=== PATIENT | male | born 1970 | race Caucasian/White ===

== ENCOUNTER → 2016-10-16 | Outpatient (CLI) | payer BC ==
[~2016-10-16] MED LIST: CETI10TA17 PO; FLUT16SP22 NS; MNTL10T PO; MULT-608 PO; PIRB14AE4 IH
--- NOTE | 2016-10-17 19:33 | Diagnostic Imaging Report ---
Right diagnostic mammogram. INDICATION: Right breast lump. There are no prior exams available for comparison. The current study was also evaluated with a Computer Aided Detection (CAD) system. FINDINGS: By history, the patient has palpable abnormality in the lateral aspect of the right breast. A marker was placed over the area of concern. There is no primary or secondary sign of malignancy in this region. I would recommend that ultrasound be performed for further study, however. There is some fibroglandular tissue in both retroareolar regions. The fibroglandular tissue appears symmetrical. Consequently, I am not convinced that this is related to gynecomastia. The MLO view of the left breast is otherwise unremarkable as well. IMPRESSION: There is no evidence of malignancy. Ultrasound of the right breast would be recommended for further study. ACR BI-RADS Category 0: Incomplete. (Needs additional imaging evaluation). Result letter will be mailed to the patient. Note: At least 10% of breast cancer is not imaged by mammography. Dictated by: Dictated on workstation # [id number]
--- NOTE | 2016-10-17 20:19 | Diagnostic Imaging Report ---
EXAM: Ultrasound of the right breast. INDICATION: Right breast lump. By history, the patient has a palpable abnormality along the lateral aspect of the right breast. The diagnostic mammogram performed earlier today failed to show any sign of malignancy in this area. On this study, there is no discrete solid or cystic mass in the lateral aspect of the right breast. The patient also noted some pain in the lateral aspect of the left retroareolar region. There is no ultrasound abnormality identified in this area either. IMPRESSION: 1. There is no evidence for malignancy or for an acute abnormality of either breast. 2. If clinical concern regarding a palpable abnormality on the right persists, then biopsy should still be considered. ACR BI-RADS Category 1: Negative. Result letter will be mailed to the patient. Note: At least 10% of breast cancer is not imaged by mammography. Dictated by: Dictated on workstation # [id number]
== END ==
LOC: RAD 13:02
PROVIDERS: ATTEND Nurse Practitioner
DX: N63 Unspecified lump in breast (principal)
CPT/HCPCS: 76641

== ENCOUNTER 2018-03-28 13:13 | Outpatient (CLI) | payer BC ==
[~2018-03-28] VITALS: Ht 190.5 cm; Wt 137.0 kg
[2018-03-28 13:27] VITALS: BP 124/91
[2018-03-28] MEDS ORDERED: FLUT15.88 NSEACH (14:42)
[2018-03-28] MEDS ORDERED: FENO67CA PO (14:42)
[2018-03-28] MEDS ORDERED: BACI1CAP6 PO (14:42)
[2018-03-28] MEDS ORDERED: TURM538C PO (14:42)
[2018-03-28] MEDS ORDERED: LISI1TAB8 PO (14:42)
[2018-03-28] MEDS ORDERED: CETI10TA17 PO (14:42)
[2018-03-28] MEDS ORDERED: MONT10TA24 PO (14:42)
[2018-03-28] MEDS ORDERED: OMG1KC PO (14:42)
[2018-03-28] MEDS ORDERED: MULT1TAB69 PO (14:42)
[2018-03-28] MEDS ORDERED: IBUP-30 PO (14:42)
[2018-03-28] MEDS ORDERED: FENO48TA5 PO (14:45)
== END 2018-03-28 13:40 | disposition home or self-care (01) ==
LOC: PREOP 13:13
PROVIDERS: ATTEND Podiatrist Foot & Ankle Surgery
DX: Z01.818 Encounter for other preprocedural examination (principal)
CPT/HCPCS: 87081

== ENCOUNTER → 2018-04-08 | Outpatient (CLI) | payer BC ==
[~2018-04-08] MED LIST changes: +BACI1CAP6 PO; +FENO48TA5 PO; +FENO67CA PO; +FLUT15.88 NSEACH; +HYDR-3816 PO; +IBUP-30 PO; +LISI1TAB8 PO; +MONT10TA24 PO; +MULT1TAB69 PO; +OMG1KC PO; +TURM538C PO
--- NOTE | 2018-04-08 16:04 | Diagnostic Imaging Report ---
PROCEDURE: US abdomen complete. TECHNIQUE: Multiple real-time grayscale images were obtained over the abdomen in various projections. INDICATION: Abdominal pain. FINDINGS: Liver measures up to 24 cm. There is increased echogenicity of liver compatible with fatty infiltration. There is no obvious biliary ductal dilatation. Common bile duct is not well seen. The gallbladder wall is upper limits of normal at 3 mm. There is no cholelithiasis or pericholecystic fluid. Pancreas is not well-seen due to bowel gas. Spleen measures up to 12.7 cm. The aorta is not well visualized. IVC is patent. Both kidneys normal. There is no ascites. IMPRESSION: Hepatomegaly with fatty infiltration of the liver. Upper limits of normal gallbladder wall thickness of 3 mm. Common bile duct and pancreas are obscured by bowel gas. Dictated by: Dictated on workstation # [id number]
== END ==
LOC: RAD 12:25
PROVIDERS: ATTEND Nurse Practitioner
DX: K76.0 Fatty (change of) liver, not elsewhere classified (principal)
CPT/HCPCS: 76700

== ENCOUNTER 2018-04-10 15:34 | Outpatient (CLI) | payer BC ==
[~2018-04-10] VITALS: Ht 190.5 cm; Wt 137.0 kg
[~2018-04-10 15:34] MED LIST changes: -HYDR-3816 PO
[2018-04-11] MEDS ORDERED: HYDR-3816 PO (08:05)
== END 2018-04-10 16:30 | disposition home or self-care (01) ==
LOC: PREOP 15:34
PROVIDERS: ATTEND Surgery
DX: Z01.818 Encounter for other preprocedural examination (principal)

== ENCOUNTER 2018-04-11 07:02 | Day surgery (SDC) | payer BC ==
[~2018-04-11] VITALS: Ht 190.5 cm; Wt 137.0 kg
[2018-04-11] MEDS ORDERED: BUP/EPI 0.5% 1:200,000 (SENSORCAINE) 30 ML VIAL ONE (07:04)
--- OUTSIDE RECORDS SUMMARY | 2018-04-11 07:06 | XMS REPORT | Continuity of Care Document ---
Author Author [facility] Organization [facility] Address Unknown Phone Unavailable Allergies Active Description Code Type Severity Reaction Onset Reported/Identified Relationship to Patient Clinical Status Yes No Known Drug Allergies [id number] Drug Allergy Unknown N/A 06/22/2011 Medications There is no data. Problems Date Dx Coded Attending Type Code Diagnosis Diagnosed By 06/04/2013 VARUN ESCOTO Ot 726.2 06/04/2013 VARUN ESCOTO Ot V57.1 08/21/2014 SHAYAN MAGANA MD Ot 327.23 10/30/2016 DIYA CHAMBERLAIN APRN Ot N63 UNSPECIFIED LUMP IN BREAST 04/03/2018 SALAS CHILEL DPM Ot Z01.818 ENCOUNTER FOR OTHER PREPROCEDURAL EXAMIN Procedures There is no data. Results Test Result Range Methicillin resistant Staphylococcus aureus (MRSA) screening culture - 13:35 Methicillin resistant Staphylococcus aureus (MRSA) screening culture NEG NRG Encounters ACCT No. Visit Date/Time Discharge Status Pt. Type Provider Facility Loc./Unit Complaint [id number] 03/28/2018 13:13:00 03/28/2018 13:40:00 DIS Outpatient SALAS CHILEL DPM [facility] PREOP TAILOR BUNION RIGHT FOOT [id number] 10/16/2016 13:02:00 10/16/2016 23:59:59 CLS Outpatient DIYA CHAMBERLAIN APRN [facility] RAD RT BREAST LUMP [id number] 08/20/2014 20:11:00 08/21/2014 06:05:00 DIS Outpatient SHAYAN MAGANA MD [facility] SLEEP [id number] 05/21/2013 11:30:00 06/04/2013 14:01:00 DIS Outpatient VARUN ESCOTO [facility] REHAB [id number] 02/06/2013 13:17:00 02/06/2013 23:59:59 CLS Outpatient [id number] 04/08/2018 12:25:00 ACT Outpatient DIYA CHAMBERLAIN APRN [facility] RAD SEVERE RT SIDED ABD PAIN [id number] 04/08/2018 08:00:00 PEN Preadmit SALAS CHILEL DPM [facility] SDC TAILOR BUNION RIGHT FOOT
[2018-04-11 07:15] VITALS: BP 143/84
[2018-04-11] MEDS ORDERED: ceFAZolin 2 GM IV Premixed 50 ML IV ONE (07:15)
[2018-04-11] MEDS: LACTATED RINGERS 1,000 ML IV PRN ×2 (07:30→10:20)
[2018-04-11 07:38] LABS: BASOPHILS # (AUTO) 0.1 10^3/uL (0.0-0.1); BASOPHILS % (AUTO) 1 % (0-10); EOSINOPHILS # (AUTO) 0.4 10^3/uL (0.0-0.3); EOSINOPHILS % (AUTO) 6 % (0-10); HEMATOCRIT 39 % (40-54); HEMOGLOBIN 13.5 G/DL (13.3-17.7); LYMPHOCYTES # (AUTO) 1.3 X 10^3 (1.0-4.0); LYMPHOCYTES % (AUTO) 22 % (12-44); MEAN CORPUSCULAR HEMOGLOBIN 30 PG (25-34); MEAN CORPUSCULAR HGB CONC 34 G/DL (32-36); MEAN CORPUSCULAR VOLUME 88 FL (80-99); MONOCYTES # (AUTO) 0.7 X 10^3 (0.0-1.0); MONOCYTES % (AUTO) 11 % (0-12); NEUTROPHILS # (AUTO) 3.7 X 10^3 (1.8-7.8); NEUTROPHILS % (AUTO) 60 % (42-75); PLATELET COUNT 298 10^3/uL (130-400); RED BLOOD COUNT 4.44 10^6/uL (4.35-5.85); RED CELL DISTRIBUTION WIDTH 12.4 % (10.0-14.5); WHITE BLOOD COUNT 6.1 10^3/uL (4.3-11.0)
[2018-04-11] MEDS ORDERED: CATHETER FLUSH 10 ML SYR IV PRN (07:45)
--- NOTE | 2018-04-11 08:03 | Progress Note-Pre Operative ---
Pre-Operative Progress Note H&P Reviewed The H&P was reviewed, patient examined and no changes noted. Date Seen by Provider: Apr 11, 2018 Time Seen by Provider: 07:55 Date H&P Reviewed: Apr 11, 2018 Time H&P Reviewed: 08:00 Pre-Operative Diagnosis: Symptomatic chronic acalculous cholecystitis THOM ASH APRN Apr 11, 2018 8:03 am
[2018-04-11] MEDS ORDERED: HYDR-3816 PO (08:05)
--- NOTE | 2018-04-11 08:06 | Discharge Inst-Surgical ---
D/C Lap Instructions-KIDO New, Converted, or Re-Newed RX: RX on Chart Follow Up Appt in 2 weeks Activity as tolerated No driving for 24 hours No driving while on pain medications Incentive Spirometry use every 2 hours while awake Regular Diet Symptoms to Report: Fever over 101 degree F, Nausea/Vomiting Infection Signs and Symptoms to report: Increased redness, Foul odor of wound, Increased drainage Bathing instructions: May shower Operative Area Clean/Dry; Keep incision clean/dry If any problems/questions: Contact your physician or go to Emergency Room THOM ASH APRN Apr 11, 2018 8:06 am
[2018-04-11] MEDS ORDERED: DEXAMETHASONE 10 MG/ML (DECADRON) 1 ML VIAL ONE (08:12)
[2018-04-11] MEDS ORDERED: LIDOCAINE PF 2% 2 ML (XYLOCAINE) VIAL ONE (08:12)
[2018-04-11] MEDS ORDERED: proPOfol 200 MG/20 ML (DIPRIVAN) VIAL IV ONE (08:12)
[2018-04-11] MEDS ORDERED: MIDAZOLAM 2 MG/2 ML (VERSED) VIAL ONE (08:12)
[2018-04-11] MEDS ORDERED: fentaNYL INJECTION 100 MCG/2 ML AMP ONE (08:13)
[2018-04-11] MEDS ORDERED: morphine INJ 10 MG/ML 1ML (SYR OR VIAL) IVP PRN (08:15)
[2018-04-11] MEDS ORDERED: ACETAMINOPHEN 325 MG TABLET PO PRN (08:15)
[2018-04-11] MEDS ORDERED: HYDROcodone/APAP 5 MG/325 MG (LORTAB) TAB PO ONE (08:15)
[2018-04-11] MEDS ORDERED: ONDANSETRON 4 MG/2 ML (SDV) Z0FRAN IVP PRN ×2 (08:15→11:30)
[2018-04-11] MEDS ORDERED: SEVOFLURANE (ULTANE) 15 ML INHAL SOLN ONE ×5 (08:29→11:07)
[2018-04-11] MEDS ORDERED: NEOSTIGMINE 1 MG/ML 5 ML SYRINGE ONE (10:59)
[2018-04-11] MEDS ORDERED: GLYCOPYRROLATE 0.2 MG/ML (ROBINUL) 2 ML VIAL ONE (10:59)
[2018-04-11] MEDS ORDERED: ATROPINE INJ 0.4 MG/ML SDV ONE (10:59)
--- NOTE | 2018-04-11 11:13 | Progress Note-Post Operative ---
Post-Operative Progess Note Surgeon (s)/Educator Senior Clinical (s) Surgeon RICHIE SUTTON MD Educator Senior Clinical: jaden lauren [facility] Pre-Operative Diagnosis Symptomatic chronic acalculous cholecystitis Post-Operative Diagnosis same Procedure & Operative Findings Date of Procedure 04/11/18 Procedure Performed/Findings laparoscopic cholecystectomy. Anesthesia Type GET Estimated Blood Loss Estimated blood loss (mL): minimal Specimens/Packing Specimens Removed gallbladder RICHIE SUTTON MD Apr 11, 2018 11:13 am
[2018-04-11] MEDS ORDERED: PROMETHAZINE INJ 25 MG/ML (PHENERGAN) AMP IVP ONE (11:30)
[2018-04-11] MEDS ORDERED: fentaNYL INJECTION 100 MCG/2 ML AMP IVP ONE (11:30)
[2018-04-11] MEDS ORDERED: MEPERIDINE (DEMEROL) INJ 50 MG/ML IVP ONE (11:30)
[2018-04-11] MEDS ORDERED: KETOROLAC 30 MG/ML VIAL IVP ONE (11:30)
--- NOTE | 2018-04-11 12:01 | OPERATIVE REPORT ---
DATE OF SERVICE: 04/11/2018 ATTENDING PRIMARY CARE PHYSICIAN: Dr. Talavera. PREOPERATIVE DIAGNOSIS: Symptomatic chronic acalculous cholecystitis. POSTOPERATIVE DIAGNOSIS: Symptomatic chronic acalculous cholecystitis. PROCEDURE: Laparoscopic cholecystectomy. SURGEON: Richie Sutton MD. ANESTHESIA: General endotracheal. ESTIMATED BLOOD LOSS: Minimal. FINDINGS: Chronic inflammation of the gallbladder with gallbladder wall thickening and mesenteric adhesions to the fundus of the gallbladder. Small stones identified after examination ex vivo. DISPOSITION: The patient tolerated the procedure well. The patient is a 47-year-old male who has had mild issues with pain in the epigastric region as well as the right upper abdominal quadrant for the past several years. He states in the past few months, this has become much more frequent as well as much more severe. He states that after eating a meal, he will have pain in the right upper abdominal quadrant, which is associated with nausea; however, no vomiting. He states that some of these episodes are intense and will last for a few hours. An ultrasound was performed recently, which showed gallbladder wall thickening as well as a dilated gallbladder. This is consistent with a chronic acalculous cholecystitis. DESCRIPTION OF PROCEDURE: The patient was brought to the operating room, laid supine on the table. After adequate IV pain and sedative medications and general endotracheal intubation, the abdomen was prepped and draped in standard surgical fashion. A 0.5% Marcaine with epinephrine was then used to anesthetize the overlying skin in the left upper abdominal quadrant. A small transverse skin incision made using a 15 blade. An 0 silk suture was applied to the medial aspect of the incision for retraction and a Veress needle was inserted with a low opening pressure of 0 mmHg. The abdomen was then insufflated to 15 mmHg pressure. The Veress needle removed and a 5 mm Xcel trocar placed followed by a 5 mm 45-degree angle laparoscope visualizing the peritoneal cavity. A 4-quadrant abdominal exploration was performed. There was a moderate gallbladder wall inflammation as well as omental adhesions to the gallbladder. There was mild hepatomegaly. What was visualized was small bowel, stomach and omentum appeared normal. Under direct visualization, we then proceeded to place a supraumbilical 10 mm port after the skin and peritoneal lining were anesthetized using 0.5% Marcaine with epinephrine and a transverse skin incision made using 15 blade. In a similar manner, a right upper abdominal quadrant 5 mm port was placed. The patient was then placed in reverse Trendelenburg position as well as plane right side up, left side down. The fundus of the gallbladder was then retracted anteriorly and superiorly and the omental adhesions taken down using blunt dissection as well as electrocautery and hook instrument. The hepatoduodenal ligament was identified and opened using the hook instrument with cautery as well as blunt dissection. The entire critical view of safety was identified including the triangle of Calot as well as the cystic duct and artery as the only two structures going into the gallbladder as well as the cystic plate behind the proximal gallbladder. A timeout was then taken and the cystic duct and artery were then clipped proximally, distally and cut with EndoShears. The gallbladder was then dissected off the liver bed using electrocautery on the hook instrument with visualization of good hemostasis as well as no leaking ducts of Luschka. The gallbladder was removed through the 10 mm port site using an EndoCatch bag. The 10 mm port site fascia and peritoneum were then closed under direct visualization using a David-Swetha device and an 0 Vicryl suture. The abdomen was desufflated and remaining ports removed. All skin incisions were closed using 4-0 Monocryl running subcuticular sutures. Wounds were then cleaned and covered with Dermabond. The patient tolerated the procedure well. We will start IV and oral pain medication as well as a clear liquid diet. Once he is tolerating clears, has good pain control with oral pain medication and is ambulating well, we will discharge him home. He will be instructed to do no heavy lifting or exertion for the next two weeks. Job ID: [id number] DocumentID: [id number] Dictated Date: 04/11/2018 11:30:37 Career Technical Supervisor Date: 04/11/2018 12:00:42 Dictated By: RICHIE SUTTON MD
[2018-04-11 12:20] VITALS: BP 142/89
[2018-04-11] MEDS ORDERED: HYDROcodone/APAP 5 MG/325 MG (LORTAB) TAB ONE (12:28)
[2018-04-11 12:50] VITALS: BP 140/84
--- NOTE | 2018-04-11 13:07 | Anesthesia-General Post-Op ---
General Patient Condition Mental Status/LOC: Same as Preop Cardiovascular: Satisfactory Nausea/Vomiting: Absent Respiratory: Satisfactory Pain: Controlled Complications: Absent Post Op Complications Complications None Follow Up Care/Instructions Patient Instructions None needed. Anesthesia/Patient Condition Patient Condition Patient is doing well, no complaints, stable vital signs, no apparent adverse anesthesia problems. No complications reported per nursing. JULIETTE BETHEA CRNA Apr 11, 2018 13:07
[2018-04-11 13:20] VITALS: BP 126/73
[2018-04-11 13:30] VITALS: BP 126/73
== END 2018-04-11 13:30 | disposition home or self-care (01) ==
LOC: SDC 07:02
PROVIDERS: ATTEND Surgery
DX: K80.10 Calculus of gallbladder with chronic cholecystitis without obstruction (principal); I10 Essential (primary) hypertension; J45.909 Unspecified asthma, uncomplicated; G47.33 Obstructive sleep apnea (adult) (pediatric); K21.9 Gastro-esophageal reflux disease without esophagitis; Z68.38 Body mass index [BMI] 38.0-38.9, adult; Z79.899 Other long term (current) drug therapy
CPT/HCPCS: 36415; 85025; 94664

== ENCOUNTER 2018-06-21 11:15 | Outpatient (CLI) | payer BC ==
[~2018-06-21] VITALS: Ht 190.5 cm; Wt 137.0 kg
[~2018-06-21 11:15] MED LIST changes: +HYDR-3816 PO
== END 2018-06-21 11:29 | disposition home or self-care (01) ==
LOC: PREOP 11:15
PROVIDERS: ATTEND Podiatrist Foot & Ankle Surgery
DX: Z01.818 Encounter for other preprocedural examination (principal)

== ENCOUNTER 2018-06-24 09:05 | Day surgery (SDC) | payer BC ==
[~2018-06-24] VITALS: Ht 190.5 cm; Wt 136.1 kg
[2018-06-24] MEDS ORDERED: LACTATED RINGERS 1,000 ML IV PRN (09:13)
[2018-06-24] MEDS ORDERED: ceFAZolin INJECTION 1,000 MG in NS (IVPB) 50 ML IV ONE (09:15)
[2018-06-24] MEDS ORDERED: BUPIVACAINE 0.5% 30 ML (SENSORCAINE) VIAL ONE (09:30)
[2018-06-24] MEDS ORDERED: LIDOCAINE 1% INJ 20 ML 20 ML VIAL ONE (09:30)
[2018-06-24 09:42] VITALS: BP 134/80
[2018-06-24] MEDS ORDERED: FAMOTIDINE 20MG/2ML IV (PEPCID) ONE (09:46)
[2018-06-24] MEDS ORDERED: MIDAZOLAM 2 MG/2 ML (VERSED) VIAL ONE (09:53)
[2018-06-24] MEDS ORDERED: fentaNYL INJECTION 100 MCG/2 ML AMP ONE (09:53)
[2018-06-24] MEDS ORDERED: FAMOTIDINE 20MG/2ML IV (PEPCID) IV ONE (10:00)
--- NOTE | 2018-06-24 10:19 | Progress Note-Pre Operative ---
Pre-Operative Progress Note H&P Reviewed The H&P was reviewed, patient examined and no changes noted. Date Seen by Provider: Jun 24, 2018 Time Seen by Provider: 10:18 Date H&P Reviewed: Jun 24, 2018 Time H&P Reviewed: :18 Pre-Operative Diagnosis: SatnamttSALAS Chacon DPQiana Jun 24, 2018 10:19
[2018-06-24] MEDS ORDERED: SEVOFLURANE (ULTANE) 15 ML INHAL SOLN ONE (11:11)
[2018-06-24] MEDS ORDERED: proPOfol 200 MG/20 ML (DIPRIVAN) VIAL IV ONE ×2 (11:11)
[2018-06-24] MEDS ORDERED: LIDOCAINE PF 2% 5 ML (XYLOCAINE) VIAL ONE (11:11)
[2018-06-24] MEDS ORDERED: ONDANSETRON 4 MG/2 ML (SDV) Z0FRAN ONE (11:11)
[2018-06-24] MEDS ORDERED: LACTATED RINGERS 1,000 ML IV SCH (11:17)
--- NOTE | 2018-06-24 11:17 | Progress Note-Post Operative ---
Post-Operative Progess Note Surgeon (s)/Retail Receiving Clerk (s) Surgeon SALAS CHILEL DPM Retail Receiving Clerk: none Pre-Operative Diagnosis Bunionette Right Post-Operative Diagnosis same Procedure & Operative Findings Date of Procedure 06/24/18 Procedure Performed/Findings Tailors bunionectomy, right Anesthesia Type General Estimated Blood Loss Estimated blood loss (mL): Minimal Specimens/Packing Specimens Removed none SALAS CHILEL DPM Jun 24, 2018 11:17
[2018-06-24] MEDS ORDERED: ACHD5005 PO (11:20)
[2018-06-24] MEDS ORDERED: morphine INJ 10 MG/ML 1ML (SYR OR VIAL) IVP ONE (11:30)
[2018-06-24] MEDS ORDERED: MEPERIDINE (DEMEROL) INJ 50 MG/ML IVP ONE (11:30)
[2018-06-24] MEDS ORDERED: ONDANSETRON 4 MG/2 ML (SDV) Z0FRAN IVP PRN (11:30)
[2018-06-24] MEDS ORDERED: HYDROcodone/APAP 5 MG/325 MG (LORTAB) TAB PO PRN (11:30)
[2018-06-24] MEDS ORDERED: morphine INJ 10 MG/ML 1ML (SYR OR VIAL) ONE (11:38)
[2018-06-24 12:20] VITALS: BP 128/89
[2018-06-24 12:50] VITALS: BP 138/90
[2018-06-24 13:20] VITALS: BP 131/88
--- NOTE | 2018-06-24 13:26 | Anesthesia-General Post-Op ---
General Patient Condition Mental Status/LOC: Same as Preop Cardiovascular: Satisfactory Nausea/Vomiting: Absent Respiratory: Satisfactory Pain: Controlled Complications: Absent Post Op Complications Complications None Follow Up Care/Instructions Patient Instructions None needed. Anesthesia/Patient Condition Patient Condition Patient is doing well, no complaints, stable vital signs, no apparent adverse anesthesia problems. No complications reported per nursing. JULIETTE BETHEA CRNA Jun 24, 2018 13:26
--- NOTE | 2018-06-24 13:57 | Diagnostic Imaging Report ---
Right foot at 1144. Indication: Postop right foot. 2 views were obtained. There are no prior studies available for comparison. There is no fracture, dislocation or acute bony abnormality evident. There is a minute calcaneal spur. The soft tissues are unremarkable. Impression: There is no evidence for an acute bony abnormality. Dictated by: Dictated on workstation # [id number]
--- NOTE | 2018-06-24 20:50 | OPERATIVE REPORT ---
DATE OF SERVICE: 06/24/2018 SURGEON: Keerthi Chilel DPM PREOPERATIVE DIAGNOSIS: Tailor's bunion, right foot. POSTOPERATIVE DIAGNOSIS: Tailor's bunion, right foot. PROCEDURE: Tailor's bunionectomy, right foot. WOUND CLASS: Clean. ANESTHESIA: General. HEMOSTASIS: Pneumatic thigh tourniquet at 300 mmHg. INDICATIONS: This 47-year-old male presents complaining of a painful right foot. Conservative therapy has met with unsatisfactory results and the patient is agreeable to surgical intervention after risks and complications were discussed at length. No guarantees were extended to the patient and he is willing to proceed. DESCRIPTION OF PROCEDURE: The patient was brought back to the operating table, placed in secure supine position. General anesthetic was then induced. Appropriate timeout was then performed. Pneumatic thigh tourniquet was placed on the right lower extremity over several layers of padding. The right foot was then prepped and draped in normal sterile manner. A local injection of 0.5% Marcaine was performed and a reverse Mccollum block utilizing 5 mL. Attention was then directed to the right foot, was elevated and allowed to exsanguinate after which the tourniquet was inflated to 300 mmHg. Attention was then directed to the dorsal aspect of the right foot overlying the fifth metatarsophalangeal joint where a 3.5 cm longitudinal linear incision was created. The incision was deepened in the same plane with great care to identify and retract all vital neurovascular structures. All the necessary blood vessels were cauterized as encountered. The incisions were deepened down to the capsular tissue where a longitudinal capsulotomy was performed. Capsular tissue was reflected exposing a hypertrophic lateral eminence to the fifth metatarsal head, which was resected utilizing a power sagittal saw. The area was further contoured and smoothed with a power bur. The wound was flushed with copious amounts of normal saline. Closure was then performed in layers. Deep closure was performed with 3-0 Vicryl, superficial with 4-0 Vicryl, skin closed with 4-0 Prolene in a horizontal mattress type stitch. Postoperative injection consisted of 8 mL of 0.5% Marcaine plain and local infusion to the surgical site. Postoperative dressing consisted of Betadine soaked Adaptic, sterile 4 x 4, sterile Kerlix, all secured with a Coban wrap. The patient tolerated the anesthesia and procedure well, was transported from the operating room to the recovery area with vital signs stable and vascular status intact to all digits of the right foot. Postop instructions were dispensed to the patient in addition to prescription for Vicodin. He is to follow up in the office in 10 days' period of time or sooner if necessary. Job ID: [id number] DocumentID: [id number] Dictated Date: 06/24/2018 11:24:25 Music Professionals Date: 06/24/2018 20:49:09 Dictated By: KEERTHI CHILEL DPM
== END 2018-06-24 13:35 | disposition home or self-care (01) ==
LOC: SDC 09:05
PROVIDERS: ATTEND Podiatrist Foot & Ankle Surgery
DX: M21.611 Bunion of right foot (principal); Z11.2 Encounter for screening for other bacterial diseases; J45.909 Unspecified asthma, uncomplicated; I10 Essential (primary) hypertension; J33.9 Nasal polyp, unspecified; G47.33 Obstructive sleep apnea (adult) (pediatric); K21.9 Gastro-esophageal reflux disease without esophagitis; Z79.899 Other long term (current) drug therapy
CPT/HCPCS: 73620; 87081

== ENCOUNTER 2021-07-27 11:20 | Outpatient (CLI) | payer BC ==
[~2021-07-27] VITALS: Ht 190.5 cm; Wt 142.4 kg
[~2021-07-27 11:20] MED LIST changes: +ACHD5005 PO; +FENO48TA11 PO; -FENO48TA5 PO; -FENO67CA PO; +FENO67CA14 PO; +FLUT15.845 NSEACH; -FLUT15.88 NSEACH; +HYDR-34 PO; -HYDR-3816 PO; +LISI1TAB46 PO; -LISI1TAB8 PO; +MONT-40 PO; -MONT10TA24 PO; +MULT-567 PO; -MULT1TAB69 PO
== END 2021-07-27 13:47 | disposition home or self-care (01) ==
LOC: PREOP 11:20
PROVIDERS: ATTEND Surgery
DX: Z01.818 Encounter for other preprocedural examination (principal)

== ENCOUNTER → 2022-02-01 | Outpatient (CLI) | payer BC, OTHER ==
[~2022-02-01] VITALS: Ht 190.5 cm; Wt 142.7 kg
[~2022-02-01] MED LIST changes: +CETI10TA49 PO; +FLUT9.9S NS
== END | disposition home or self-care (01) ==
LOC: PREOP 06:25
PROVIDERS: ATTEND Surgery
DX: Z01.818 Encounter for other preprocedural examination (principal)

== ENCOUNTER 2022-02-10 09:46 | Day surgery (SDC) | payer BC, OTHER ==
--- NOTE | 2022-01-31 09:10 | HISTORY AND PHYSICAL ---
DATE OF SERVICE: ATTENDING PRIMARY CARE PHYSICIAN: Dr. Lorenzo Talavera. HISTORY OF PRESENT ILLNESS: The patient is a 51-year-old male who is in need of a screening colonoscopy. He reports he has never had one done before at this point in his life. He denies any diarrhea or constipation as well as no abdominal pain. He denies any episodes of red blood per rectum nor any dark tarry stools. He does report that his maternal grandmother did have colon cancer. PAST MEDICAL HISTORY: Hypertension, hyperlipidemia. PAST SURGICAL HISTORY: Right shoulder arthroscopy 2016, lumbar vertebrae ORIF in May 2016, tooth extraction 2016 and laparoscopic cholecystectomy 2018, removal of cyst from face in 2010, carpal tunnel 2010 and 2015. ALLERGIES: NO KNOWN DRUG ALLERGIES. MEDICATIONS: Probiotic, fish oil, lisinopril/hydrochlorothiazide, Singulair, fenofibrate. SOCIAL HISTORY: Negative for tobacco, smoke; rare for alcohol. FAMILY HISTORY: Mother, hypertension. Father, diabetes. Maternal grandmother with colon cancer, breast cancer. VITAL SIGNS: Stable. Current weight 314 pounds at 6 feet 3 inches. REVIEW OF SYSTEMS: Well-nourished male in no acute distress. He is not experiencing any shortness of breath or difficulty breathing. No chest pain, palpitations or diaphoresis. No nausea, vomiting or abdominal pain. No diarrhea or constipation. No red blood per rectum. No dark tarry stools. No fever or chills. No recent inadvertent weight loss. All other review of systems negative. PHYSICAL EXAMINATION: CHEST: Clear. Good breath sounds bilaterally. HEART: Regular, no murmurs. EXTREMITIES: No lower extremity edema. Negative Homans sign. HEENT: No scleral icterus. NECK: No cervical lymphadenopathy. ABDOMEN: Soft, nontender, nondistended. SKIN: Warm, dry and pink. NEUROLOGIC: Awake, alert and oriented x3. ASSESSMENT AND PLAN: A 51-year-old male who is in need of a screening colonoscopy. At this time, we will proceed with scheduling him for a screening colonoscopy. Job ID: [id number] DocumentID: [id number] Dictated Date: 01/30/2022 11:04:50 Fast Foods Worker Date: 01/30/2022 12:50:09 Dictated By: THOM ASH APRN
[~2022-02-10] VITALS: Ht 190.5 cm; Wt 142.7 kg
--- NOTE | 2022-02-10 09:49 | Progress Note-Pre Operative ---
Pre-Operative Progress Note Date of Available H&P: Feb 10, 2022 Date H&P Reviewed: Feb 10, 2022 Time H&P Reviewed: 09:00 History & Physical: No changes noted Pre-Operative Diagnosis: screening o RICHIE SUTTON MD Feb 10, 2022 09:49
[2022-02-10] MEDS ORDERED: LACTATED RINGERS 1,000 ML IV STA (09:52)
--- NOTE | 2022-02-10 09:54 | Discharge Inst-Surgical ---
D/C Lap Instructions-LESLEY Follow Up Activity as tolerated High Fiber Diet 25g or more per day Avoid Alcohol, Caffeine, Spicy Philip and Acid foods. Drink 64 fluid oz or more of fluids per day. Symptoms to Report: Fever over 101 degree F, Nausea/Vomiting If any problems/questions: Contact your physician or go to Emergency Room RICHIE SUTTON MD Feb 10, 2022 09:54
[2022-02-10 10:00] VITALS: BP 138/84
[2022-02-10] MEDS ORDERED: ONDANSETRON 4 MG/2 ML (SDV) Z0FRAN IVP PRN (10:00)
[2022-02-10] MEDS ORDERED: LIDOCAINE JELLY 2% 6 ML SYRINGE MM PRN (10:00)
[2022-02-10] MEDS ORDERED: ONDANSETRON 4 MG (ZOFRAN) ORAL DISSOLVE TAB PO PRN (10:00)
[2022-02-10] MEDS ORDERED: PROPOFOL INJECTION 50 ML IV ONE (10:05)
[2022-02-10] MEDS ORDERED: MIDAZOLAM 2 MG/2 ML (VERSED) VIAL ONE (10:16)
[2022-02-10 10:40] VITALS: BP 123/59
[2022-02-10 10:44] VITALS: BP 125/61
--- NOTE | 2022-02-10 10:47 | Anesthesia-General Post-Op ---
MAC Patient Condition Mental Status/LOC: Same as Preop Cardiovascular: Satisfactory Nausea/Vomiting: Absent Respiratory: Satisfactory Pain: Controlled Complications: Absent Post Op Complications Complications None Follow Up Care/Instructions Patient Instructions None needed. Anesthesiology Discharge Order Discharge Order Patient is doing well, no complaints, stable vital signs, no apparent adverse anesthesia problems. No complications reported per nursing. ALYSE BLEVINS CRNA Feb 10, 2022 10:47
[2022-02-10 10:55] VITALS: BP 123/76
--- NOTE | 2022-02-10 10:55 | Progress Note-Post Operative ---
Post-Operative Progess Note Surgeon (s)/Icing Machine Operator (s) Surgeon RICHIE SUTTON MD Icing Machine Operator: none Pre-Operative Diagnosis screening colo Post-Operative Diagnosis mild chronic stage 2 ext and int hemorrhoids. Procedure & Operative Findings Date of Procedure 02/10/22 Procedure Performed/Findings colonoscopy Anesthesia Type mac Estimated Blood Loss Estimated blood loss (mL): minimal Specimens/Packing Specimens Removed none RICHIE SUTTON MD Feb 10, 2022 10:55
--- NOTE | 2022-02-10 15:36 | OPERATIVE REPORT ---
DATE OF SERVICE: 02/10/2022 ATTENDING PRIMARY CARE PHYSICIAN: Lorenzo Talavera MD. PREOPERATIVE DIAGNOSIS: Screening colonoscopy. POSTOPERATIVE DIAGNOSES: Mild chronic stage II external and internal hemorrhoids. PROCEDURE PERFORMED: Colonoscopy. SURGEON: Richie Sutton MD. ANESTHESIA: Monitored anesthesia care. ESTIMATED BLOOD LOSS: Minimal. FINDINGS: Mild chronic stage II external and internal hemorrhoids. DISPOSITION: The patient tolerated the procedure well. INDICATIONS FOR PROCEDURE: The patient is a 51-year-old male referred over to us for screening colonoscopy. He has not had a colonoscopy up to this point in his life. He reports a more remote family history of colon cancer with a grandmother having the disease. He does not report any major issues with diarrhea nor constipation as well as no red blood per rectum nor any dark tarry stools. DESCRIPTION OF PROCEDURE: The patient was brought to the endoscopy suite and laid in the left lateral decubitus position. After adequate IV pain and sedative medications and monitored anesthesia care, a digital rectal examination was performed. Mild chronic stage II external and internal hemorrhoids were identified, which were not actively edematous nor inflamed and no bleeding. Normal sphincter tone was felt and there were no palpable masses. Prostate gland was palpable and appeared normal. The endoscope was then intubated into the anus and rectum gently insufflated. The endoscope was then advanced to the valves of Bolden of the rectum with no polyps or any neoplasms identified. We then proceeded through the sigmoid colon, where no diverticulosis identified. The endoscope was then advanced to the remainder of the descending, transverse and ascending colon to the cecum. These segments were normal. There were no polyps or any neoplasms identified throughout the colon or rectum. Endoscope was then slowly withdrawn while taking a second look and suctioning of residual air with no additional findings. The patient tolerated the procedure well. We will recommend continued medical management with a high-fiber diet with a fiber supplementation, which should equal or exceed 30 grams daily to promote soft consistency stools on a daily basis. If he is asymptomatic, he does not need another colonoscopy for another 10 years. Job ID: [id number] DocumentID: [id number] Dictated Date: 02/10/2022 10:42:47 Technical Sales Director Date: 02/10/2022 15:35:43 Dictated By: RICHIE SUTTON MD
== END 2022-02-10 11:08 | disposition home or self-care (01) ==
LOC: ENDO 09:46
PROVIDERS: ATTEND Surgery
DX: Z12.11 Encounter for screening for malignant neoplasm of colon (principal); K64.1 Second degree hemorrhoids; K64.4 Residual hemorrhoidal skin tags; Z80.0 Family history of malignant neoplasm of digestive organs; G47.33 Obstructive sleep apnea (adult) (pediatric); E66.01 Morbid (severe) obesity due to excess calories; Z68.39 Body mass index [BMI] 39.0-39.9, adult